=== PATIENT | female | born 1980 | race Caucasian/White ===

== ENCOUNTER 2019-08-01 17:00 | Emergency (ER) | payer BC ==
[2019-08-01] MEDS ORDERED: Sodium Chloride 0.9% 1,000 ML IV ONE (17:07)
[2019-08-01] MEDS ORDERED: LORazepam 2 MG/ML SDV IVPUSH ONE (17:23)
[2019-08-01 18:00] LABS: BLOOD UREA NITROGEN,BUN 12 mg/dL (7.0-18.0); CARBON DIOXIDE,CO2 26.2 mmol/L (21.0-32.0); CHLORIDE,CL 104 mmol/L (98-107); GLUCOSE RANDOM 106 mg/dL (74-106); LIPASE 136 U/L (73-393); POTASSIUM,K 3.3 mmol/L (3.5-5.1); SODIUM,NA 139 mmol/L (136-145)
--- NOTE | 2019-08-01 18:20 | CR ---
INDICATION: Chest pain TECHNIQUE: Chest 1 view. COMPARISON: None. FINDINGS: Cardiovascular and mediastinum: Heart size and vasculature are normal in caliber and appearance. Mediastinum is within normal limits. Lungs and pleural space: Lungs are clear. No sign of infiltrate or mass. No sign of pleural effusion. No pneumothorax. Bones and soft tissues: No significant findings. IMPRESSION: Unremarkable chest. Dictated by: Richard Nicolas MD @ 08/01/2019 18:17:59 (Electronically Signed)
--- NOTE | 2019-08-01 18:24 | EDM.PDOC ---
ED HPI GENERAL MEDICAL PROBLEM - General Chief Complaint: Chest Pain Stated Complaint: CHEST PAIN, HANDS AND ARMS NUMB Time Seen by Provider: 08/01/19 18:22 Source of Information: Reports: Patient - History of Present Illness INITIAL COMMENTS - FREE TEXT/NARRATIVE: HISTORY AND PHYSICAL: History of present illness: []Patient presents with history of chest pains over the last 2 weeks she has had 48 hour Holter monitor but has not received results she had eaten lunch today at 1 PM and awoke at 3 PM with the pain currently at his resolved 0 out of 10 pain pain is nonradiating when it occurs however at current her hands and arms feel numb and tingly she is quite anxious No fever nausea vomiting chills sweats no current chest pain shortness breath diaphoresis no dizziness or palpitation no bowel or urine symptoms Review of systems: As per history of present illness and below otherwise all systems reviewed and negative. Past medical history: As per history of present illness and as reviewed below otherwise noncontributory. Surgical history: As per history of present illness and as reviewed below otherwise noncontributory. Social history: No reported history of drug or alcohol abuse. Family history: As per history of present illness and as reviewed below otherwise noncontributory. Physical exam: HEENT: Atraumatic, normocephalic, pupils reactive, negative for conjunctival pallor or scleral icterus, mucous membranes moist, throat clear, neck supple, nontender, trachea midline. Lungs: Clear to auscultation, breath sounds equal bilaterally, chest tenderness along left sternal border as well as right pectoralis major Heart: S1S2, regular, negative for clicks, rubs, or JVD. Abdomen: Soft, nondistended, nontender. Negative for masses or hepatosplenomegaly. Negative for costovertebral tenderness. Pelvis: Stable nontender. Genitourinary: Deferred. Rectal: Deferred. Extremities: Atraumatic, negative for cords or calf pain. Neurovascular unremarkable. Neuro: Awake, alert, oriented. Cranial nerves II through XII unremarkable. Cerebellum unremarkable. Motor and sensory unremarkable throughout. Exam nonfocal. Diagnostics: [CBC CMP UA troponin lipase CPK EKG Chest 1 view Ultrasound right upper quadrant ] Therapeutics: [ normal saline Ativan ] Impression: [ anxiety about health history of chest pain 2 weeks] Muscle spasm Reproducible chest wall pain Definitive disposition and diagnosis as appropriate pending reevaluation and review of above. Left Chest Pain Score (Numeric/FACES): 6 - Related Data Allergies Allergy/AdvReac Type Severity Reaction Status Date / Time ciprofloxacin [From Cipro] Allergy Rash Verified 08/01/19 17:09 doxycycline Allergy Rash Verified 08/01/19 17:09 Home Meds: Home Meds Amoxicillin/Potassium Clav [Augmentin 875-125 Tablet] 1 each PO BID 08/01/19 [ History] lamoTRIgine [Lamotrigine] 100 mg PO DAILY 08/01/19 [History] Past Medical History - Infectious Disease History Infectious Disease History: Reports: Chicken Pox - Past Surgical History HEENT Surgical History: Reports: Naso-Sinus Surgery, Oral Surgery Female Surgical History: Reports: Section Social & Family History - Family History Family Medical History: Noncontributory - Tobacco Use Smoking Status *Q: Former Smoker Used Tobacco, but Quit: Yes Month/Year Tobacco Last Used: 2016 - Caffeine Use Caffeine Use: Reports: Soda - Recreational Drug Use Recreational Drug Use: No ED ROS GENERAL - Review of Systems Review Of Systems: See Below ED EXAM, GENERAL - Physical Exam Exam: See Below Course - Vital Signs Last Recorded V/S: Last Vital Signs Temp 97.2 F 08/01/19 17:11 Pulse 103 H 08/01/19 17:11 Resp 20 08/01/19 17:11 BP 152/84 H 08/01/19 17:11 Pulse Ox 100 08/01/19 17:11 - Orders/Labs/Meds Orders: Active Orders 24 hr Category Date Time Status EKG Documentation Completion [RC] STAT Care 08/01/19 17:07 Active CPK [CREATINE KINASE,CK] [CHEM] Stat Lab 08/01/19 18:10 Ordered TROPONIN I [CHEM] Stat Lab 08/01/19 18:10 Ordered Labs: Laboratory Tests 08/01/19 08/01/19 08/01/19 Range/Units 17:14 17:14 17:14 WBC 9.32 (4.0-11.0) K/uL RBC 4.97 (4.30-5.90) M/uL Hgb 13.9 (12.0-16.0) g/dL Hct 41.9 (36.0-46.0) % MCV 84.3 (80.0-98.0) fL MCH 28.0 (27.0-32.0) pg MCHC 33.2 (31.0-37.0) g/dL RDW Std Deviation 39.9 (28.0-62.0) fl RDW Coeff of Lynnette 13 (11.0-15.0) % Plt Count 265 (150-400) K/uL MPV 10.40 (7.40-12.00) fL Neut % (Auto) 62.4 (48.0-80.0) % Lymph % (Auto) 27.9 (16.0-40.0) % Simpson % (Auto) 8.0 (0.0-15.0) % Eos % (Auto) 1.4 (0.0-7.0) % Baso % (Auto) 0.3 (0.0-1.5) % Neut # (Auto) 5.8 H (1.4-5.7) K/uL Lymph # (Auto) 2.6 H (0.6-2.4) K/uL Simpson # (Auto) 0.8 (0.0-0.8) K/uL Eos # (Auto) 0.1 (0.0-0.7) K/uL Baso # (Auto) 0.0 (0.0-0.1) K/uL Nucleated RBC % 0.0 /100WBC Nucleated RBCs # 0 K/uL Sodium (136-145) mmol/L Potassium (3.5-5.1) mmol/L Chloride (98-107) mmol/L Carbon Dioxide (21.0-32.0) mmol/L BUN (7.0-18.0) mg/dL Creatinine (0.6-1.0) mg/dL Est Cr Clr Drug Dosing mL/min Estimated GFR (MDRD) ml/min Glucose (74-106) mg/dL Calcium (8.5-10.1) mg/dL Total Bilirubin (0.2-1.0) mg/dL AST (15-37) IU/L ALT (14-63) IU/L Alkaline Phosphatase (46-116) U/L Total Protein (6.4-8.2) g/dL Albumin (3.4-5.0) g/dL Globulin (2.6-4.0) g/dL Albumin/Globulin Ratio (0.9-1.6) Lipase (73-393) U/L Urine Color YELLOW Urine Appearance CLEAR Urine pH 5.5 (5.0-8.0) Ur Specific [place] 1.020 (1.001-1.035) Urine Protein NEGATIVE (NEGATIVE) mg/dL Urine Glucose (UA) NEGATIVE (NEGATIVE) mg/dL Urine Ketones NEGATIVE (NEGATIVE) mg/dL Urine Occult Blood MODERATE H (NEGATIVE) Urine Nitrite NEGATIVE (NEGATIVE) Urine Bilirubin NEGATIVE (NEGATIVE) Urine Urobilinogen 0.2 (<2.0) EU/dL Ur Leukocyte Esterase NEGATIVE (NEGATIVE) Urine RBC 0-2 (0-2/HPF) Urine WBC 0-1 (0-5/HPF) Ur Epithelial Cells RARE (NONE-FEW) Urine Bacteria RARE (NEGATIVE) Urine HCG, Qual NEGATIVE (NEGATIVE) 08/01/19 Range/Units 17:14 WBC (4.0-11.0) K/uL RBC (4.30-5.90) M/uL Hgb (12.0-16.0) g/dL Hct (36.0-46.0) % MCV (80.0-98.0) fL MCH (27.0-32.0) pg MCHC (31.0-37.0) g/dL RDW Std Deviation (28.0-62.0) fl RDW Coeff of Lynnette (11.0-15.0) % Plt Count (150-400) K/uL MPV (7.40-12.00) fL Neut % (Auto) (48.0-80.0) % Lymph % (Auto) (16.0-40.0) % Simpson % (Auto) (0.0-15.0) % Eos % (Auto) (0.0-7.0) % Baso % (Auto) (0.0-1.5) % Neut # (Auto) (1.4-5.7) K/uL Lymph # (Auto) (0.6-2.4) K/uL Simpson # (Auto) (0.0-0.8) K/uL Eos # (Auto) (0.0-0.7) K/uL Baso # (Auto) (0.0-0.1) K/uL Nucleated RBC % /100WBC Nucleated RBCs # K/uL Sodium 139 (136-145) mmol/L Potassium 3.3 L (3.5-5.1) mmol/L Chloride 104 (98-107) mmol/L Carbon Dioxide 26.2 (21.0-32.0) mmol/L BUN 12 (7.0-18.0) mg/dL Creatinine 0.8 (0.6-1.0) mg/dL Est Cr Clr Drug Dosing 96.18 mL/min Estimated GFR (MDRD) > 60.0 ml/min Glucose 106 (74-106) mg/dL Calcium 8.7 (8.5-10.1) mg/dL Total Bilirubin 0.6 (0.2-1.0) mg/dL AST 25 (15-37) IU/L ALT 46 (14-63) IU/L Alkaline Phosphatase 51 (46-116) U/L Total Protein 7.6 (6.4-8.2) g/dL Albumin 3.9 (3.4-5.0) g/dL Globulin 3.7 (2.6-4.0) g/dL Albumin/Globulin Ratio 1.1 (0.9-1.6) Lipase 136 (73-393) U/L Urine Color Urine Appearance Urine pH (5.0-8.0) Ur Specific [place] (1.001-1.035) Urine Protein (NEGATIVE) mg/dL Urine Glucose (UA) (NEGATIVE) mg/dL Urine Ketones (NEGATIVE) mg/dL Urine Occult Blood (NEGATIVE) Urine Nitrite (NEGATIVE) Urine Bilirubin (NEGATIVE) Urine Urobilinogen (<2.0) EU/dL Ur Leukocyte Esterase (NEGATIVE) Urine RBC (0-2/HPF) Urine WBC (0-5/HPF) Ur Epithelial Cells (NONE-FEW) Urine Bacteria (NEGATIVE) Urine HCG, Qual (NEGATIVE) Meds: Medications Discontinued Medications Generic Name Dose Route Start Last Admin Trade Name Freq PRN Reason Stop Dose Admin Sodium Chloride 1,000 mls @ 999 mls/hr 08/01/19 17:07 08/01/19 17:33 Normal Saline IV 08/01/19 18:07 999 mls/hr STAT ONE Administration Lorazepam 1 mg 08/01/19 17:23 08/01/19 17:34 Ativan IVPUSH 08/01/19 17:24 1 mg ONETIME ONE Administration Departure - Departure Time of Disposition: 18:37 Disposition: Home, Self-Care 01 Condition: Good Clinical Impression: Chest wall pain, Muscle spasm, Anxiety about health - Discharge Information Referrals: Carolyne Cooper NP [Primary Care Provider] - Forms: ED Department Discharge Additional Instructions: Rest ice ibuprofen Return if symptoms persist or worsen Follow-up with primary care for continued management and follow-up Holter monitor results [facility] - [facility] [address] [place] [id number] The following information is given to patients seen in the emergency department who are being discharged to home. This information is to outline your options for follow-up care. We provide all patients seen in our emergency department with a follow-up referral. The need for follow-up, as well as the timing and circumstances, are variable depending upon the specifics of your emergency department visit. If you don't have a primary care physician on staff, we will provide you with a referral. We always advise you to contact your personal physician following an emergency department visit to inform them of the circumstance of the visit and for follow-up with them and/or the need for any referrals to a consulting specialist. The emergency department will also refer you to a specialist when appropriate. This referral assures that you have the opportunity for follow-up care with a specialist. All of these measure are taken in an effort to provide you with optimal care, which includes your follow-up. Under all circumstances we always encourage you to contact your private physician who remains a resource for coordinating your care. When calling for follow-up care, please make the office aware that this follow-up is from your recent emergency room visit. If for any reason you are refused follow-up, please contact the [facility] emergency department at and asked to speak to the emergency department charge nurse. - My Orders Last 24 Hours: My Active Orders 08/01/19 17:07 EKG Documentation Completion [RC] STAT 08/01/19 18:10 CPK [CREATINE KINASE,CK] [CHEM] Stat TROPONIN I [CHEM] Stat - Assessment/Plan Last 24 Hours: My Active Orders 08/01/19 17:07 EKG Documentation Completion [RC] STAT 08/01/19 18:10 CPK [CREATINE KINASE,CK] [CHEM] Stat TROPONIN I [CHEM] Stat
--- NOTE | 2019-08-01 18:27 | US ---
INDICATION: Chest pain and nausea TECHNIQUE: Ultrasound abdomen limited. Sonographic images of the right upper quadrant were obtained using edward-scale and color Doppler images. COMPARISON: None FINDINGS: Liver: Normal in size and echotexture. No masses. No intrahepatic biliary dilatation. Gallbladder: No stones or sludge. Normal wall thickness. No pericholecystic fluid. Common bile duct: 5 mm. Pancreas: Normal. Right kidney: 11.6 cm. Normal echotexture and cortex. No masses, stones, or hydronephrosis. IMPRESSION: Unremarkable right upper quadrant ultrasound. Dictated by Richard Nicolas MD @ 08/01/2019 6:25:49 PM Dictated by: Richard Nicolas MD @ 08/01/2019 18:25:55 (Electronically Signed)
== END 2019-08-01 19:17 | disposition home or self-care (01) ==
LOC: MW.ED 17:00
DX: F41.9 Anxiety disorder, unspecified (principal); M62.838 Other muscle spasm; R07.89 Other chest pain; Z87.891 Personal history of nicotine dependence
CPT/HCPCS: 36415; 71045; 76705; 80053; 81001; 81025; 82550; 83690; 84484; 85025; 96361; 96374; 99285; J2060; J7040

== ENCOUNTER 2020-09-26 08:01 | Day surgery (SDC) | payer BC ==
[~2020-09-26 08:01] MED LIST: Acetaminophen 1,000 MG in Premix Bag 1 BAG IV PRN; Glycopyrrolate 0.2 MG/ML SDV ONE; Ketorolac 30 MG/ML SDV ONE; Lactated Ringers 1,000 ML IV SCH; Lidocaine 2% 5 ML SDV ONE; Midazolam 1 MG/ML 2 ML SDV ONE; Ondansetron 4 MG/2 ML SDV ONE; Propofol 200 MG/20 ML SDV ONE; Rocuronium Bromide 50 MG/5 ML Syringe ONE; fentaNYL 250 MCG/5 ML SDV ONE
[2020-09-26] MEDS ORDERED: Sodium Chloride 0.9% 20 ML ONE (08:08)
[2020-09-26] MEDS ORDERED: ceFAZolin 1 GM Vial ONE (08:08)
[2020-09-26] MEDS ORDERED: Fluorescein 5 ML Vial ONE (08:14)
[2020-09-26] MEDS ORDERED: Lidocaine 1% with EPINEPHrine 1:100,000 20 ML MDV ONE (08:14)
[2020-09-26] MEDS ORDERED: Bupivacaine 0.25% 10 ML SDV ONE (08:14)
[2020-09-26] MEDS ORDERED: Methylene Blue 50 MG/10 ML Ampule ONE (08:14)
[2020-09-26] MEDS ORDERED: Neomycin/Polymyxin B Bladder Irrigation 1 ML Amp ONE (08:15)
--- NOTE | 2020-09-26 09:03 | PCM.PREANE ---
Preanesthetic Assessment - Anesthesia/Transfusion/Family Hx Anesthesia History: Prior Anesthesia Without Reaction Family History of Anesthesia Reaction: No Transfusion History: No Prior Transfusion(s) Intubation History: Unknown - Review of Systems General: No Symptoms Pulmonary: No Symptoms Cardiovascular: No Symptoms Gastrointestinal: No Symptoms Neurological: No Symptoms Other: Reports: None - Physical Assessment Vital Signs: Last Vital Signs Temp 36.7 C 09/26/20 08:42 Pulse 80 09/26/20 08:42 Resp 15 09/26/20 08:42 BP 140/63 09/26/20 08:42 Pulse Ox 100 09/26/20 08:42 Height: 5 ft 7 in Weight: 100.698 kg ASA Class: 2 Mental Status: Alert & Oriented x3 Airway Class: Mallampati = 2 Dentition: Reports: Normal Dentition Thyro-Mental Finger Breadths: 3 Mouth Opening Finger Breadths: 3 ROM/Head Extension: Full Lungs: Clear to Auscultation, Normal Respiratory Effort Cardiovascular: Regular Rate, Regular Rhythm - Lab Values: Laboratory Last Values WBC 9.99 K/uL (4.0-11.0) 09/26/20 08:34 RBC 4.98 M/uL (4.30-5.90) 09/26/20 08:34 Hgb 14.1 g/dL (12.0-16.0) 09/26/20 08:34 Hct 43.3 % (36.0-46.0) 09/26/20 08:34 MCV 86.9 fL (80.0-98.0) 09/26/20 08:34 MCH 28.3 pg (27.0-32.0) 09/26/20 08:34 MCHC 32.6 g/dL (31.0-37.0) 09/26/20 08:34 RDW Std Deviation 43.5 fl (28.0-62.0) 09/26/20 08:34 RDW Coeff of Lynnette 14 % (11.0-15.0) 09/26/20 08:34 Plt Count 278 K/uL (150-400) 09/26/20 08:34 MPV 10.40 fL (7.40-12.00) 09/26/20 08:34 Nucleated RBC % 0.0 /100WBC 09/26/20 08:34 Nucleated RBCs # 0 K/uL 09/26/20 08:34 - Allergies Allergies/Adverse Reactions: Allergies Allergy/AdvReac Type Severity Reaction Status Date / Time ciprofloxacin [From Cipro] Allergy Rash Verified 09/20/20 10:52 doxycycline Allergy Rash Verified 09/20/20 10:52 - Blood Blood Available: No - Anesthesia Plan Pre-Op Medication Ordered: None - Acknowledgements Anesthesia Type Planned: General Anesthesia Pt an Appropriate Candidate for the Planned Anesthesia: Yes Alternatives and Risks of Anesthesia Discussed w Pt/Guardian: Yes Pt/Guardian Understands and Agrees with Anesthesia Plan: Yes PreAnesthesia Questionnaire HEENT History: Reports: Allergic Rhinitis, Other (See Below) Other HEENT History: wears glasses Cardiovascular History: Reports: None Respiratory History: Reports: None Gastrointestinal History: Reports: None Genitourinary History: Reports: Other (See Below) Other Genitourinary History: 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: , Other (See Below) (h/o ovarian cyst) Musculoskeletal History: Reports: Back Pain, Chronic Neurological History: Reports: Migraines Psychiatric History: Reports: Anxiety, Depression Endocrine/Metabolic History: Reports: Obesity/BMI 30+ (BMI 34.8) Hematologic History: Reports: None Immunologic History: Reports: None Oncologic (Cancer) History: Reports: None Dermatologic History: Reports: None - Infectious Disease History Infectious Disease History: Reports: Chicken Pox - Past Surgical History Head Surgeries/Procedures: Reports: None HEENT Surgical History: Reports: Naso-Sinus Surgery, Oral Surgery Cardiovascular Surgical History: Reports: None Respiratory Surgical History: Reports: None GI Surgical History: Reports: None Female Surgical History: Reports: Section (x2), Tubal Ligation Endocrine Surgical History: Reports: None Neurological Surgical History: Reports: None Musculoskeletal Surgical History: Reports: None Oncologic Surgical History: Reports: None Dermatological Surgical History: Reports: None - SUBSTANCE USE Tobacco Use Status *Q: Former Tobacco User Tobacco Use Within Last Twelve Months: No - HOME MEDS Home Medications: Home Meds Acetaminophen [Tylenol] 2 tab PO ASDIRECTED PRN 09/07/20 [History] Acetaminophen/HYDROcodone [Tenino 325-5 MG] 1 tab PO Q6H PRN 09/07/20 [History] Calcium Carbonate [Calcium] 1,200 mg PO DAILY 09/07/20 [History] Cetirizine HCl [Zyrtec] 1 tab PO DAILY 09/07/20 [History] Cholecalciferol (Vitamin D3) [Vitamin D3] 1 tab PO DAILY 09/07/20 [History] Cyanocobalamin (Vitamin B-12) [Vitamin B-12] 1 tab PO DAILY 09/07/20 [History] Ibuprofen 1 tab PO ASDIRECTED PRN 09/07/20 [History] LORazepam [Lorazepam] 1 tab PO ASDIRECTED PRN 09/07/20 [History] Montelukast [Singulair] 1 tab PO BEDTIME 09/07/20 [History] lamoTRIgine [Lamotrigine] 1 tab PO DAILY 09/07/20 [History] Fluticasone Propionate [Flonase Allergy Relief] 2 spray NASBOTH DAILY 09/20/20 [History] - CURRENT (IN HOUSE) MEDS Current Meds: Current Medications Fentanyl (Sublimaze) 50 mcg IVPUSH Q5M PRN PRN Reason: Pain Acetaminophen 1,000 mg/ Premix 100 mls @ 400 mls/hr IV ONETIME PRN PRN Reason: Pain Lactated Ringer's (Ringers, Lactated) 1,000 mls @ 125 mls/hr IV ASDIRECTED BÁRBARA Last Admin: 09/26/20 08:40 Dose: 125 mls/hr Documented by: Discontinued Medications Bupivacaine HCl (Sensorcaine-Mpf 0.25%) Confirm Administered Dose 10 ml .ROUTE .STK-MED ONE Stop: 09/26/20 08:15 Cefazolin Sodium (Ancef) Confirm Administered Dose 2 gm .ROUTE .STK-MED ONE Stop: 09/26/20 08:09 Fentanyl (Sublimaze) Confirm Administered Dose 250 mcg .ROUTE .STK-MED ONE Stop: 09/26/20 06:38 Fluorescein Sodium (Ak-Fluor) Confirm Administered Dose 5 ml .ROUTE .STK-MED ONE Stop: 09/26/20 08:15 Glycopyrrolate (Robinul) Confirm Administered Dose 0.8 mg .ROUTE .STK-MED ONE Stop: 09/26/20 06:41 Sodium Chloride (Normal Saline) Confirm Administered Dose 20 mls @ as directed .ROUTE .STK-MED ONE Stop: 09/26/20 08:09 Ketorolac Tromethamine (Toradol) Confirm Administered Dose 30 mg .ROUTE .STK-MED ONE Stop: 09/26/20 06:41 Lidocaine (Xylocaine-Mpf 2%) Confirm Administered Dose 5 ml .ROUTE .STK-MED ONE Stop: 09/26/20 06:41 Lidocaine/Epinephrine (Xylocaine 1% With Epinephrine 1:100,000) Confirm Administered Dose 20 ml .ROUTE .STK-MED ONE Stop: 09/26/20 08:15 Methylene Blue (Provayblue) Confirm Administered Dose 50 mg .ROUTE .STK-MED ONE Stop: 09/26/20 08:15 Midazolam HCl (Versed 1 Mg/Ml) Confirm Administered Dose 2 mg .ROUTE .STK-MED ONE Stop: 09/26/20 06:37 Neomycin/Polymyxin (Neosporin Gu Irrigant) Confirm Administered Dose 1 ml .ROUTE .STK-MED ONE Stop: 09/26/20 08:16 Ondansetron HCl (Zofran) Confirm Administered Dose 4 mg .ROUTE .STK-MED ONE Stop: 09/26/20 06:41 Propofol (Diprivan 20 Ml) Confirm Administered Dose 200 mg .ROUTE .STK-MED ONE Stop: 09/26/20 06:37 Rocuronium Reeds (Rocuronium Reeds) Confirm Administered Dose 50 mg .ROUTE .STK-MED ONE Stop: 09/26/20 06:41
[2020-09-26 09:11] LABS: BLOOD UREA NITROGEN,BUN 10 mg/dL (7.0-18.0); CARBON DIOXIDE,CO2 24.8 mmol/L (21.0-32.0); CHLORIDE,CL 102 mmol/L (98-107); GLUCOSE RANDOM 99 mg/dL (74-106); POTASSIUM,K 3.5 mmol/L (3.5-5.1); SODIUM,NA 139 mmol/L (136-145)
[2020-09-26] MEDS ORDERED: HYDROmorphone 2 MG/ML Syringe ONE ×3 (10:16→12:51)
[2020-09-26] MEDS ORDERED: Rocuronium Bromide 50 MG/5 ML Syringe ONE ×2 (10:39→11:49)
[2020-09-26] MEDS ORDERED: fentaNYL 250 MCG/5 ML SDV ONE (10:40)
[2020-09-26] MEDS ORDERED: Ketorolac 30 MG/ML SDV IVPUSH ONE (12:47)
[2020-09-26] MEDS ORDERED: Ondansetron 4 MG/2 ML SDV IVPUSH PRN (12:47)
[2020-09-26] MEDS ORDERED: Promethazine 25 MG/ML SDV IM PRN (12:47)
[2020-09-26] MEDS ORDERED: Acetaminophen/oxyCODONE 325-5 MG Tab PO PRN (12:47)
[2020-09-26] MEDS ORDERED: Midazolam 1 MG/ML 2 ML SDV ONE (12:51)
[2020-09-26] MEDS: fentaNYL 100 MCG/2 ML SDV IVPUSH PRN ×2 (13:02→13:23)
--- NOTE | 2020-09-26 13:56 | PCM.POSTAN ---
POST ANESTHESIA ASSESSMENT - MENTAL STATUS Mental Status: Alert, Oriented - VITAL SIGNS Vital Signs: Last Vital Signs Temp 36.6 C 09/26/20 12:48 Pulse 73 09/26/20 13:43 Resp 13 09/26/20 13:43 BP 110/56 L 09/26/20 13:43 Pulse Ox 98 09/26/20 13:43 - RESPIRATORY Respiratory Status: Respiratory Rate WNL, Airway Patent, O2 Saturation Stable - CARDIOVASCULAR CV Status: Pulse Rate WNL, Blood Pressure Stable - GASTROINTESTINAL GI Status: No Symptoms - PAIN Pain Score: 5 - POST OP HYDRATION Hydration Status: Adequate & Stable - OBSERVATIONS Free Text/Narrative:: No anesthesia problems
[2020-09-26] MEDS ORDERED: Acetaminophen 650 MG Supp RECTAL ONE (14:00)
[2020-09-26] MEDS: Morphine 4 MG/ML Syringe IVPUSH PRN ×2 (14:50→20:52)
[2020-09-26] MEDS: Acetaminophen/oxyCODONE 325-5 MG Tab PO PRN ×2 (17:08→21:36)
[2020-09-26] MEDS ORDERED: Belladonna Alkaloids/Opium 16.2-30 MG Supp RECTAL ONE (17:53)
[2020-09-26] MEDS: Ketorolac 30 MG/ML SDV IVPUSH PRN (19:39)
--- NOTE | 2020-09-26 20:11 | PCM.OPNOTE ---
- General Post-Op/Procedure Note Date of Surgery/Procedure: 09/26/20 Operative Procedure(s): Total laparoscopic Hysterectomy. Bilateral salphingectomy. Cystoscopy Findings: 10 week sized anteverted uterus Laparoscopy showed evidence of tubal ligation Simple < 1cm cyst noted on right and left ovaries Minimal bladder adhesion to uterus Cystoscopy showed intact bladder with bilateral ureteral jets Pre Op Diagnosis: Abnormal uterine bleeding. Chronic pelvic pain Post-Op Diagnosis: Abnormal uterine bleeding. Endometriosis Anesthesia Technique: General ET Tube Primary Surgeon: Rohini Chen Secondary Surgeon: aPdmini Yo Anesthesia Provider: Darrell Mcgregor Pathology: uterus and tubes Fluid Replacement, Intraop: 2,300 Output, Urine Amount: 100 EBL in mLs: 600 Complications: None Condition: Good Free Text/Narrative:: Intake & Output 09/26/20 09/26/20 09/26/20 06:59 14:59 22:59 Intake Total 2900 Output Total 600 325 Balance 2300 -325
[2020-09-26] MEDS: Docusate Sodium 100 MG Cap PO SCH (21:23)
[2020-09-26] MEDS: Metoclopramide 10 MG/2 ML SDV IVPUSH SCH ×2 (21:23)
[2020-09-27] MEDS: Morphine 4 MG/ML Syringe IVPUSH PRN (00:50)
[2020-09-27] MEDS: Ketorolac 30 MG/ML SDV IVPUSH PRN ×2 (04:42→11:23)
[2020-09-27] MEDS: Metoclopramide 10 MG/2 ML SDV IVPUSH SCH (05:11)
[2020-09-27] MEDS: Acetaminophen/oxyCODONE 325-5 MG Tab PO PRN ×2 (06:08→10:51)
[2020-09-27 06:21] LABS: BLOOD UREA NITROGEN,BUN 7 mg/dL (7.0-18.0); CARBON DIOXIDE,CO2 28.5 mmol/L (21.0-32.0); CHLORIDE,CL 105 mmol/L (98-107); GLUCOSE RANDOM 87 mg/dL (74-106); POTASSIUM,K 3.9 mmol/L (3.5-5.1); SODIUM,NA 140 mmol/L (136-145)
[2020-09-27] MEDS: Docusate Sodium 100 MG Cap PO SCH (09:14)
[2020-09-27] MEDS ORDERED: Enoxaparin 40 MG/0.4 ML Syringe SUBCUT ONE (09:14)
--- NOTE | 2020-09-27 09:19 | PCM.SURGPN ---
- General Info Date of Service: 09/27/20 Date of Surgery/Procedure: 09/27/20 POD#: 1 Functional Status: Reports: Pain Controlled, Tolerating Diet, Ambulating, Urinating - Review of Systems General: Reports: No Symptoms HEENT: Reports: No Symptoms Pulmonary: Reports: No Symptoms Cardiovascular: Reports: No Symptoms Gastrointestinal: Reports: No Symptoms Genitourinary: Reports: No Symptoms Musculoskeletal: Reports: No Symptoms Skin: Reports: No Symptoms Neurological: Reports: No Symptoms Psychiatric: Reports: No Symptoms - Patient Data Vitals - Most Recent: Last Vital Signs Temp 36.6 C 09/27/20 08:54 Pulse 86 09/27/20 08:54 Resp 18 09/27/20 08:54 BP 115/62 09/27/20 08:54 Pulse Ox 96 09/27/20 08:54 Weight - Most Recent: 100.698 kg I&O - Last 24 Hours: Intake & Output 09/26/20 09/27/20 09/27/20 22:59 06:59 14:59 Intake Total 2300 1000 Output Total 425 2050 Balance 1875 -1050 Lab Results Last 24 Hrs: Laboratory Results - last 24 hr 09/26/20 09/27/20 09/27/20 Range/Units 08:34 05:22 05:22 WBC 9.15 (4.0-11.0) K/uL RBC 4.30 (4.30-5.90) M/uL Hgb 12.0 (12.0-16.0) g/dL Hct 37.8 (36.0-46.0) % MCV 87.9 (80.0-98.0) fL MCH 27.9 (27.0-32.0) pg MCHC 31.7 (31.0-37.0) g/dL RDW Std Deviation 44.6 (28.0-62.0) fl RDW Coeff of Lynnette 14 (11.0-15.0) % Plt Count 232 (150-400) K/uL MPV 10.20 (7.40-12.00) fL Neut % (Auto) 62.0 (48.0-80.0) % Lymph % (Auto) 28.0 (16.0-40.0) % [place] % (Auto) 9.2 (0.0-15.0) % Eos % (Auto) 0.7 (0.0-7.0) % Baso % (Auto) 0.1 (0.0-1.5) % Neut # (Auto) 5.7 (1.4-5.7) K/uL Lymph # (Auto) 2.6 H (0.6-2.4) K/uL [place] # (Auto) 0.8 (0.0-0.8) K/uL Eos # (Auto) 0.1 (0.0-0.7) K/uL Baso # (Auto) 0.0 (0.0-0.1) K/uL Nucleated RBC % 0.0 /100WBC Nucleated RBCs # 0 K/uL Sodium 140 (136-145) mmol/L Potassium 3.9 (3.5-5.1) mmol/L Chloride 105 (98-107) mmol/L Carbon Dioxide 28.5 (21.0-32.0) mmol/L BUN 7 (7.0-18.0) mg/dL Creatinine 0.7 (0.6-1.0) mg/dL Est Cr Clr Drug Dosing 104.93 mL/min Estimated GFR (MDRD) > 60.0 ml/min Glucose 87 (74-106) mg/dL Calcium 8.4 L (8.5-10.1) mg/dL Blood Type A NEGATIVE Antibody Screen NEGATIVE Med Orders - Current: Current Medications Docusate Sodium (Colace) 100 mg PO BID [facility] Last Admin: 09/27/20 09:14 Dose: 100 mg Documented by: Enoxaparin Sodium (Lovenox) 40 mg SUBCUT ONETIME ONE Stop: 09/27/20 09:15 Lactated Ringer's (Ringers, Lactated) 1,000 mls @ 125 mls/hr IV ASDIRECTED [facility] Last Admin: 09/26/20 08:40 Dose: 125 mls/hr Documented by: Ketorolac Tromethamine (Toradol) 30 mg IVPUSH Q6H PRN PRN Reason: Pain (severe 7-10) Stop: 10/01/20 19:01 Last Admin: 09/27/20 04:42 Dose: 30 mg Documented by: Metoclopramide HCl (Reglan) 10 mg IVPUSH Q8H [facility] Last Admin: 09/27/20 05:11 Dose: Not Given Documented by: Morphine Sulfate (Morphine) 4 mg IVPUSH Q2H PRN PRN Reason: Pain (severe 7-10) Last Admin: 09/27/20 00:50 Dose: 4 mg Documented by: Ondansetron HCl (Zofran) 4 mg IVPUSH Q6H PRN PRN Reason: Nausea/Vomiting Oxycodone/Acetaminophen (Percocet 325-5 Mg) 1 tab PO Q4H PRN PRN Reason: Pain (moderate 4-6) Oxycodone/Acetaminophen (Percocet 325-5 Mg) 2 tab PO Q4H PRN PRN Reason: Pain (moderate 4-6) Last Admin: 09/27/20 06:08 Dose: 2 tab Documented by: Promethazine HCl (Phenergan) 25 mg IM Q6H PRN PRN Reason: Nausea/Vomiting Last Admin: 09/26/20 13:03 Dose: 25 mg Documented by: Discontinued Medications Acetaminophen (Tylenol) 650 mg RECTAL NOW ONE Stop: 09/26/20 14:01 Last Admin: 09/26/20 15:42 Dose: 650 mg Documented by: Belladonna Alkaloids/Opium (B & O Supprettes No. 15a) 1 supp RECTAL ONETIME ONE Stop: 09/26/20 17:54 Last Admin: 09/26/20 18:44 Dose: 1 supp Documented by: Bupivacaine HCl (Sensorcaine-Mpf 0.25%) Confirm Administered Dose 10 ml .ROUTE .STK-MED ONE Stop: 09/26/20 08:15 Cefazolin Sodium (Ancef) Confirm Administered Dose 2 gm .ROUTE .STK-MED ONE Stop: 09/26/20 08:09 Fentanyl (Sublimaze) Confirm Administered Dose 250 mcg .ROUTE .STK-MED ONE Stop: 09/26/20 06:38 Fentanyl (Sublimaze) 50 mcg IVPUSH Q5M PRN PRN Reason: Pain Last Admin: 09/26/20 13:23 Dose: 50 mcg Documented by: Fentanyl (Sublimaze) Confirm Administered Dose 250 mcg .ROUTE .STK-MED ONE Stop: 09/26/20 10:41 Fluorescein Sodium (Ak-Fluor) Confirm Administered Dose 5 ml .ROUTE .STK-MED ONE Stop: 09/26/20 08:15 Glycopyrrolate (Robinul) Confirm Administered Dose 0.8 mg .ROUTE .STK-MED ONE Stop: 09/26/20 06:41 Hydromorphone HCl (Dilaudid) Confirm Administered Dose 2 mg .ROUTE .STK-MED ONE Stop: 09/26/20 10:17 Hydromorphone HCl (Dilaudid) Confirm Administered Dose 2 mg .ROUTE .STK-MED ONE Stop: 09/26/20 11:26 Hydromorphone HCl (Dilaudid) Confirm Administered Dose 2 mg .ROUTE .STK-MED ONE Stop: 09/26/20 12:52 Acetaminophen 1,000 mg/ Premix 100 mls @ 400 mls/hr IV ONETIME PRN PRN Reason: Pain Last Admin: 09/26/20 13:27 Dose: 400 mls/hr Documented by: Sodium Chloride (Normal Saline) Confirm Administered Dose 20 mls @ as directed .ROUTE .STK-MED ONE Stop: 09/26/20 08:09 Ketorolac Tromethamine (Toradol) Confirm Administered Dose 30 mg .ROUTE .STK-MED ONE Stop: 09/26/20 06:41 Ketorolac Tromethamine (Toradol) 30 mg IVPUSH ONETIME ONE Stop: 09/26/20 12:48 Last Admin: 09/26/20 13:00 Dose: 30 mg Documented by: Lidocaine (Xylocaine-Mpf 2%) Confirm Administered Dose 5 ml .ROUTE .STK-MED ONE Stop: 09/26/20 06:41 Lidocaine/Epinephrine (Xylocaine 1% With Epinephrine 1:100,000) Confirm Administered Dose 20 ml .ROUTE .STK-MED ONE Stop: 09/26/20 08:15 Methylene Blue (Provayblue) Confirm Administered Dose 50 mg .ROUTE .STK-MED ONE Stop: 09/26/20 08:15 Midazolam HCl (Versed 1 Mg/Ml) Confirm Administered Dose 2 mg .ROUTE .STK-MED O NE Stop: 09/26/20 06:37 Midazolam HCl (Versed 1 Mg/Ml) Confirm Administered Dose 2 mg .ROUTE .STK-MED ONE Stop: 09/26/20 12:52 Neomycin/Polymyxin (Neosporin Gu Irrigant) Confirm Administered Dose 1 ml .ROUTE .STK-MED ONE Stop: 09/26/20 08:16 Ondansetron HCl (Zofran) Confirm Administered Dose 4 mg .ROUTE .STK-MED ONE Stop: 09/26/20 06:41 Propofol (Diprivan 20 Ml) Confirm Administered Dose 200 mg .ROUTE .STK-MED ONE Stop: 09/26/20 06:37 Rocuronium Desmet (Rocuronium Desmet) Confirm Administered Dose 50 mg .ROUTE .STK-MED ONE Stop: 09/26/20 06:41 Rocuronium Desmet (Rocuronium Desmet) Confirm Administered Dose 50 mg .ROUTE .STK-MED ONE Stop: 09/26/20 10:40 Rocuronium Desmet (Rocuronium Desmet) Confirm Administered Dose 50 mg .ROUTE .STK-MED ONE Stop: 09/26/20 11:50 - Exam Wound/Incisions: Dressing Dry and Intact Quality Assessment: DVT Prophylaxis General: Alert HEENT: Pupils Equal Neck: Supple Lungs: Clear to Auscultation Cardiovascular: Regular Rate, Regular Rhythm GI/Abdominal Exam: Normal Bowel Sounds Extremities: Normal Inspection Neurological: No New Focal Deficit Psy/Mental Status: Alert Sepsis Event Note - Evaluation Sepsis Screening Result: No Definite Risk - Focused Exam Vital Signs: Vital Signs Temp Pulse Resp BP Pulse Ox 09/27/20 08:54 36.6 C 86 18 115/62 96 09/27/20 04:20 36.2 C 80 15 108/65 95 09/27/20 00:11 81 15 98/54 L 96 - Problem List & Annotations (1) S/P hysterectomy SNOMED Code(s): 274671825, 065365939, 272779073 Code(s): Z90.710 - ACQUIRED ABSENCE OF BOTH CERVIX AND UTERUS Status: Acute Current Visit: Yes - Problem List Review Problem List Initiated/Reviewed/Updated: Yes - My Orders Last 24 Hours: Active Orders 24 hr Category Date Time Status Patient Status [ADT] Routine ADT 09/26/20 12:47 Active Antiembolic Devices [RC] .Routine Care 09/26/20 12:50 Active Antiembolic Devices [RC] PER UNIT ROUTINE Care 09/26/20 12:47 Active Notify Provider Intake and Out [RC] ASDIRECTED Care 09/26/20 12:47 Active Notify Provider Vital Signs [RC] ASDIRECTED Care 09/26/20 12:47 Active Oxygen Therapy [RC] ASDIRECTED Care 09/26/20 12:47 Active RT Incentive Spirometry [RC] Q2HWA Care 09/26/20 12:47 Active Up With Assistance [RC] PER UNIT ROUTINE Care 09/26/20 12:47 Active Up ad Floresita [RC] PER UNIT ROUTINE Care 09/26/20 12:47 Active VTE/DVT Education [RC] PER UNIT ROUTINE Care 09/26/20 12:50 Active Regular Diet [DIET] Diet 09/26/20 Lunch Active Acetaminophen/oxyCODONE [Percocet 325-5 MG] Med 09/26/20 12:47 Active 1 tab PO Q4H PRN Acetaminophen/oxyCODONE [Percocet 325-5 MG] Med 09/26/20 12:47 Active 2 tab PO Q4H PRN Docusate Sodium [Colace] Med 09/26/20 21:00 Active 100 mg PO BID Enoxaparin [Lovenox] Med 09/27/20 09:14 Once 40 mg SUBCUT ONETIME ONE Ketorolac [Toradol] Med 09/26/20 19:00 Active 30 mg IVPUSH Q6H PRN Metoclopramide [Reglan] Med 09/26/20 13:00 Active 10 mg IVPUSH Q8H Morphine Med 09/26/20 12:47 Active 4 mg IVPUSH Q2H PRN Ondansetron [Zofran] Med 09/26/20 12:47 Active 4 mg IVPUSH Q6H PRN Promethazine [Phenergan] Med 09/26/20 12:47 Active 25 mg IM Q6H PRN DVT/VTE Prophylaxis Reflex [OM.PC] Routine Oth 09/26/20 12:47 Ordered Peripheral IV Discontinue [OM.PC] Routine Oth 09/26/20 12:47 Ordered Sequential Compression Device [OM.PC] Per Unit Routine Oth 09/26/20 12:47 Ordered Resuscitation Status Routine Resus Stat 09/26/20 12:47 Ordered Medication Orders Docusate Sodium (Colace) 100 mg PO BID [facility] Last Admin: 09/27/20 09:14 Dose: 100 mg Documented by: Admin: 09/26/20 21:23 Dose: 100 mg Documented by: STAR Enoxaparin Sodium (Lovenox) 40 mg SUBCUT ONETIME ONE Stop: 09/27/20 09:15 Lactated Ringer's (Ringers, Lactated) 1,000 mls @ 125 mls/hr IV ASDIRECTED [facility] Last Admin: 09/26/20 08:40 Dose: 125 mls/hr Documented by: ANTONY Ketorolac Tromethamine (Toradol) 30 mg IVPUSH Q6H PRN PRN Reason: Pain (severe 7-10) Stop: 10/01/20 19:01 Last Admin: 09/27/20 04:42 Dose: 30 mg Documented by: Admin: 09/26/20 19:39 Dose: 30 mg Documented by: STAR Metoclopramide HCl (Reglan) 10 mg IVPUSH Q8H [facility] Last Admin: 09/27/20 05:11 Dose: Not Given Documented by: Admin: 09/26/20 21:23 Dose: 10 mg Documented by: Admin: 09/26/20 21:23 Dose: Not Given Documented by: STAR Morphine Sulfate (Morphine) 4 mg IVPUSH Q2H PRN PRN Reason: Pain (severe 7-10) Last Admin: 09/27/20 00:50 Dose: 4 mg Documented by: Admin: 09/26/20 20:52 Dose: 4 mg Documented by: Admin: 09/26/20 14:50 Dose: 4 mg Documented by: RAIZA Ondansetron HCl (Zofran) 4 mg IVPUSH Q6H PRN PRN Reason: Nausea/Vomiting Oxycodone/Acetaminophen (Percocet 325-5 Mg) 1 tab PO Q4H PRN PRN Reason: Pain (moderate 4-6) Oxycodone/Acetaminophen (Percocet 325-5 Mg) 2 tab PO Q4H PRN PRN Reason: Pain (moderate 4-6) Last Admin: 09/27/20 06:08 Dose: 2 tab Documented by: Admin: 09/26/20 21:36 Dose: 2 tab Documented by: Admin: 09/26/20 17:08 Dose: 2 tab Documented by: RAIZA Promethazine HCl (Phenergan) 25 mg IM Q6H PRN PRN Reason: Nausea/Vomiting Last Admin: 09/26/20 13:03 Dose: 25 mg Documented by: MARIA EUGENIANOTIF - Assessment Assessment (Free Text/Narrative):: 39yo s/p TLH/BS for AUB and chronic pelvic POD1 ambulating , voiding and tolerating regular diet Normal vitals Normal h/h Normal Cr - Plan Plan (Free Text/Narrative):: Pain control as needed Incentive spirometry Venodynes Discharge home Lovenox SC 40mg X 1 dose
--- NOTE | 2020-09-27 11:40 | OR ---
SURGEON: TAD CARREON DATE OF PROCEDURE: 09/26/2020 PRIMARY SURGEON: Dr. Tad Carreon. Padmini Yo MD PREOPERATIVE DIAGNOSES: A 39-year-old G4, P3-0-0- 3, with Abnormal uterine bleeding, Severe Dysmenorrhea, Chronic pelvic and perineal pain Left ovarian cyst. POSTOPERATIVE DIAGNOSES: Abnormal uterine bleeding, endometriosis, and simple bilateral ovarian cysts. PROCEDURES: Total laparoscopic hysterectomy, bilateral salpingectomy, and cystoscopy. ESTIMATED BLOOD LOSS: 100. INTRAVENOUS FLUID: 2300. URINE OUTPUT: 600. ANESTHESIA: General. COMPLICATIONS: None. NOTES AND FINDINGS: It was a 25-tvuh-eylp anteverted uterus on EUA. Laparoscopy showed a bulky 10- week-size uterus, suspicious of adenomyosis. Then, bilateral tubes were noted with evidence of tubal ligation. Bilateral ovaries with a less than 1 cm simple cyst. Some tiny endometriotic deposits, more on the left posterior cul-de-sac. Minimal bladder adhesions were also noted. BRIEF HISTORY ABOUT THE PATIENT: She is a 39-year-old G4, P3-0-0- 3, x2, x1, who was seen for pelvic pain, which was getting worse. She was also complaining of pain with sex. She also had a history of very heavy menses and very heavy and very bad dysmenorrhea. The patient also complained of stress urinary incontinence, which she was not planning to treat at this point. The patient was given the option. The patient had tried pain medication in the past and said she has also used OCP in the past, and she desired definitive management due to the shortcoming of previous method tried. The patient also desired to keep her ovaries if scant amount of endometriotic deposit was noted on laparoscopy SURGERY: The patient was explained the risks, benefits, and alternatives, and she decided to proceed with hysterectomy, and she signed the consent. The patient was taken to the operating room, where general anesthesia was performed without difficulty. She was prepared and draped in the dorsal lithotomy position with Maicol stirrups. A Esqueda catheter was placed. A speculum was used to expose the cervix. The anterior lip of the cervix was grasped. The cervix was sized to 4.0. The cervix was dilated to accommodate the Advincula. The cervix was sounded to 10 cm. The Advincula was placed without difficulty. Attention was placed to the abdomen. A subumbilical 5 mm incision was made after injecting 0.25% Marcaine. The abdomen was entered via direct entry. Entry was confirmed with a low intraabdominal pressure of 5 mmHg. CO2 peritoneum was then obtained to 15 mmHg. The patient was placed in Trendelenburg position. The right and left lower quadrant ports were placed 2 fingerbreadths superior and medial to the anterosuperior iliac spine. The ureter was visualized on the right side vermiculating, while on the left side, due to the colon, was not visualized. The colon was gently retracted out of the posterior cul-de-sac. The right tube was grasped by the life science research assistant and with the aid of the LigaSure device was sequentially coagulated and cut to separate it from the ovary, pelvic peritoneum, and ligament. The tube was all the way to the cornua of the uterus. The left tube was detached in the same fashion. The round ligament was transected 2/3 from the uterus and 1/3 from the pelvic sidewall. The anterior broad ligament was to expose the uterine artery. The uterine artery was skeletonized. A bladder flap was created with the aid of the Harmonic scalpel. The uterine vessels were then coagulated at the cervicovaginal junction and then lateralized with the Advincula. The Advincula cup was then entered. A circumferential incision was made between the cervix and the vagina with the Harmonic scalpel device. This was done on the right and the left with a circumferential incision around the colpotomy cup. The uterus was detached. Attention was then placed to the peritoneum, where the uterus was removed. The uterosacral ligament was identified. The See stitch was made with a 2-0 Vicryl, which placed the posterior vaginal wall to the uterosacral over the pelvic peritoneum and the cul-de-sac to the other uterosacral ligament. Then, the colpotomy was closed anteroposteriorly with an interlocking stitch of 0 Polysorb. IV fluorescein was given. Then, cystoscopy was performed. Bilateral ureteral jets were observed, and the bladder was noted to be intact. Then, a sponge stick was placed in the vagina. Attention was placed to the abdomen. The incision was inspected. This was noted to be hemostatic. Pneumoperitoneum was reduced to 5 mmHg, which was also noted to be hemostatic, the incision. The gas was deflated, and all trocars were removed. The laparoscopy incision was closed with 3-0 Monocryl. All instrument and pad counts were correct x2. The patient tolerated the procedure well and was taken to the recovery room in stable condition. HENRY ROTH /[id number] SHE
== END 2020-09-27 12:41 | disposition home or self-care (01) ==
LOC: MW.SDS 08:01 → MW.OB 13:50 → MW.SDS 09-27 12:41
PROVIDERS: ATTEND Obstetrics & Gynecology
DX: N83.202 Unspecified ovarian cyst, left side (principal); N83.201 Unspecified ovarian cyst, right side; Z79.899 Other long term (current) drug therapy; Z98.51 Tubal ligation status; N39.3 Stress incontinence (female) (male); Z88.8 Allergy status to other drugs, medicaments and biological substances; E66.9 Obesity, unspecified; Z68.34 Body mass index [BMI] 34.0-34.9, adult
CPT/HCPCS: 36415; 58571; 80048; 84703; 85025; 85027; 86850; 86900; 86901; 88307; A9270; J0131; J0690; J1170; J1650; J1885; J2001; J2250; J2270; J2405; J2550; J2704; J2765; J3010; J3490; J7120; 00944